=== PATIENT | female | born 1965 | race Hispanic/Latino ===

== ENCOUNTER 2016-07-22 17:20 | Emergency (ER) | payer OTHER ==
[~2016-07-22] VITALS: Ht 160 cm; Wt 92.5 kg
[~2016-07-22 17:20] MED LIST: ALBUTEROL0.09 MG/A1 INH; AMBIEN10 MG PO; ESCITALOPRAM10 MG PO; ESCITALOPRAM20 MG PO; FENOFIBRATE145 MG PO; FLEXERIL10 MG PO; FLONASE120 SPRAY/ NAS; GABAPENTIN TAB600 MG PO; HYCET 325 MG/1473 ML PO; IBUPROFEN800 M1 PO; INVEGA 3 MG3 MG PO; LEVSIN/SL0.125 MG SL; LOVENOX 4040 MG/0.4 SC; LYRICA100 MG PO; MELOXICAM7.5 MG PO; MIRALAX17 GM PO; MORPHINE SULFAT15 MG PO; MORPHINE SULFAT30 M2 PO; MULTIVITAMIN1 TAB PO; PERCOCET 5-3251 EACH PO; PRISTIQ100 MG PO; PROTONIX 40MG T40 MG PO; RISPERIDONE2 MG PO; ROBAXIN-750750 MG PO; ROBITUSSIN W/CO10 ML PO; TRAZODONE HCL150 MG PO; ZITHROMAX Z-PA250 M1 PO; ZOFRAN4 M1 SL
[2016-07-22] MEDS ORDERED: ESCITALOPRAM OX10 MG PO (19:04)
--- NOTE | 2016-07-22 19:40 | ED GI/GU/ABDOMINAL COMPLAINT ---
History of Present Illness General Chief Complaint: Abdominal Pain/Flank Pain Stated Complaint: ABDOMINAL PAIN/SWELLING OFF AND ON X 3 WEEKS Source: patient Exam Limitations: no limitations Vital Signs & Intake/Output Vital Signs & Intake/Output Vital Signs Date Time Temp Pulse Resp B/P B/P Pulse O2 O2 Flow FiO2 Mean Ox Delivery Rate 07/22 2020 97.8 64 18 122/77 98 07/22 1731 98.1 75 16 121/84 95 Room Air Allergies Coded Allergies: NO KNOWN ALLERGIES (04/30/14) Reconcile Medications Escitalopram Oxalate 10 MG TABLET 1 TAB PO PRN MENTAL HEALTH (Reported) Triage Note: PT HAS BEEN HAVING BELLY SWELLING SINCE THE 'ST OF LAST MONTH. PT HAD A BIOPSY OF HER LIVER AND HAS NOT GOTTEN RESULTS BACK YET. PT IS HAVING A LOT OF PAIN AND SHE IS HAVING PRESSURE. Triage Nurses Notes Reviewed? yes ? n Is pt currently ? No HPI: Patient presents for evaluation of Right upper quadrant abdominal pain that began about 3 weeks ago. Patient states the abdominal pain has been constant and mild but becomes severe with standing. She states she had a liver biopsy done on July 16 as a result of her persistent abdominal pain. The results of the biopsy are still pending. He has had no pain medications prescribed and has not tried any [id number] pain medications either. Patient is unable to describe the characteristics of the pain but it is generally located in the right upper quadrant. There is no change with eating. No associated fever, vomiting, diarrhea or dysuria. Past History Travel History Traveled to [place] past 21 day No Medical History Any Pertinent Medical History? see below for history Neurological: REGIONAL PAIN SYNDROME RT ARM EENT: NONE Cardiovascular: NONE Respiratory: NONE Gastrointestinal: LYSIS OF ADHESIONS Hepatic: NONE Renal: NONE Musculoskeletal: NONE Psychiatric: NONE Endocrine: NONE Blood Disorders: NONE Cancer(s): NONE GROCERY STORE BAGGER/Reproductive: HYSTERECTOMY History of MRSA: No History of VRE: No History of CDIFF: No Surgical History Surgical History: N (noncontributory) Psychosocial History Who do you live with Spouse What is your primary language Lithuanian Tobacco Use: Never used ETOH Use: denies use Illicit Drug Use: denies illicit drug use Family History Hx Contributory? No Review of Systems Review of Systems Constitutional: Reports: no symptoms. EENTM: Reports: no symptoms. Respiratory: Reports: no symptoms. Cardiovascular: Reports: no symptoms. GI: Reports: see HPI. Genitourinary: Reports: no symptoms. Musculoskeletal: Reports: no symptoms. Skin: Reports: no symptoms. Neurological/Psychological: Reports: no symptoms. Hematologic/Endocrine: Reports: no symptoms. Immunologic/Allergic: Reports: no symptoms. All Other Systems: Reviewed and Negative Physical Exam Physical Exam Gastrointestinal: normal bowel sounds (S), SEE BELOW Comments: Gen.: Well-nourished, well-developed, no acute respiratory distress. Head: Normocephalic, atraumatic. Eyes: Normal inspection bilaterally Ears: Normal inspection bilaterally Nose: Normal inspection Throat/mouth : Moist mucosa Neck: Supple, full range of motion, no goiter Heart: Regular rate and rhythm, no murmurs rubs or gallops Lungs: Clear to auscultation bilaterally with normal air entry Chest: Nontender Back: Normal range of motion Abdomen: Soft, right upper quadrant abdominal tenderness with [place] regarding the no rebound, nondistended, normal bowel sounds, no hepatosplenomegaly. Extremities: Normal range of motion grossly, equal radial pulses, no cyanosis clubbing or edema Neurologic: Cranial nerves grossly intact, speech is clear Skin: warm and dry Psychiatric: Calm, cooperative, no apparent delusions or hallucinations Core Measures ACS in differential dx? No Severe Sepsis Present: No Septic Shock Present: No Progress Differential Diagnosis: BOWEL OBSTRUCTION, ASCITES, BILIARY COLIC, CONSTIPATION Plan of Care: Orders Procedure Date/time Status URINALYSIS 07/22 1944 Active LIPASE 07/22 1944 Complete HUMAN BETA HCG SCREEN 07/22 1944 Complete COMPREHENSIVE METABOLIC PANEL 07/22 1944 Complete CBC WITHOUT DIFFERENTIAL 07/22 1944 Complete Laboratory Tests 07/22/16 2013: Anion Gap 7, Estimated GFR > 60, BUN/Creatinine Ratio 28.6 H, Glucose 82, Calcium 9.5, Total Bilirubin 0.5, AST 22, ALT 32, Alkaline Phosphatase 87, Total Protein 7.4, Albumin 4.3, Globulin 3.1, Albumin/Globulin Ratio 1.4, Lipase 290, Total Beta HCG NEGATIVE, CBC w Diff NO MAN DIFF REQ, RBC 5.25, MCV 82.7, MCH 26.2 L, RDW 13.7, MPV 9.7, Gran % 55.0, Lymphocytes % 35.1, Monocytes % 7.5, Eosinophils % 2.0, Basophils % 0.4, Absolute Granulocytes 5.0, Absolute Lymphocytes 3.2, Absolute Monocytes 0.7 H, Absolute Eosinophils 0.2, Absolute Basophils 0, PUBS MCHC 31.7 L, Urine Color Pending, Urine Clarity Pending, Urine pH Pending, Ur Specific [place] Pending, Urine Protein Pending, Urine Ketones Pending, Urine Nitrite Pending, Urine Bilirubin Pending, Urine Urobilinogen Pending, Ur Leukocyte Esterase Pending, Ur Microscopic Pending, Urine Hemoglobin Pending, Urine Glucose Pending Diagnostic Imaging: Discussed w/RAD: CT Scan. Radiology Impression: PATIENT: DANNIE WATSON PRESENT AGE: 50 PATIENT ACCOUNT NO: [id number] : 67 LOCATION: [facility] ORDERING PHYSICIAN: ROBSON BROTHERS MD SERVICE DATE: 07/22/16 EXAM TYPE: CAT - CT ABD & PELVIS W/O IV CONTRAS EXAMINATION: CT ABDOMEN AND PELVIS WITHOUT CONTRAST CLINICAL INFORMATION: Right upper quadrant abdominal pain. COMPARISON: CT abdomen and pelvis 03/30/2015. TECHNIQUE: Multidetector volumetric imaging was performed from the superior aspect of the liver through the pubic symphysis. Sagittal and coronal reformatted images were obtained on the technologist's workstation. DLP: 926 mGy-cm FINDINGS: Limited evaluation of the solid abdominal viscera in the absence of intravenous contrast. LUNG BASES: The visualized lung bases are unremarkable. LIVER, GALLBLADDER, AND BILIARY TREE: The liver is normal in size, shape, and attenuation. No focal hepatic lesion or biliary ductal dilatation is present. The gallbladder is surgically absent. PANCREAS: Unremarkable. SPLEEN: Unremarkable. ADRENAL GLANDS: Unremarkable. KIDNEYS AND URETERS: The kidneys are normal in size, shape, and attenuation. No hydronephrosis, hydroureter, or calculi seen. No perinephric stranding. BLADDER: Unremarkable. GASTROINTESTINAL TRACT: Evaluation of the gastrointestinal system demonstrates postsurgical changes related to prior gastric surgery. There is normal anatomic orientation of the stomach relative to the duodenum. Abdominal and pelvic bowel loops are normal in caliber, without findings indicative of small bowel obstruction or ileus. There is a moderate amount of retained stool throughout the colon. No organizing intra-abdominal or pelvic fluid collections are identified and there is no free intraperitoneal air. The appendix is not clearly visualized on this exam. However, there are no acute inflammatory changes within the right lower quadrant of the abdomen to suggest acute appendicitis. ABDOMINAL WALL: No significant hernia is appreciated. LYMPH NODES: No significant abdominal or pelvic adenopathy. VASCULAR: Normal course and caliber of the abdominal aorta and its branching vessels, without aneurysmal dilatation. Limited evaluation for vascular patency in the absence of intravenous contrast. PELVIC VISCERA: Unremarkable. OSSEOUS STRUCTURES: No acute osseous abnormality. Normal alignment of the imaged thoracolumbar spine. No destructive osseous lesions. IMPRESSION: No acute findings within the abdomen or pelvis to explain patient symptomatology. The gallbladder is surgically absent. The appendix is not well seen on this examination. However, there are no acute inflammatory changes within the right lower quadrant of the abdomen. There are postsurgical changes related to prior gastric surgery. Abdominal and pelvic bowel loops are normal in caliber, without findings indicative of small bowel obstruction or ileus. There is a moderate amount of retained stool throughout the colon. DICTATED BY: ELVIN SANTAMARIA MD DATE/TIME DICTATED:07/22/162107 AGENT BASED MODELER:ROE DATE/TIME TRANSCRIBED:07/22/162107 CONFIDENTIAL, DO NOT COPY WITHOUT APPROPRIATE AUTHORIZATION. <Electronically signed in Other Vendor System> SIGNED BY: ELVIN SANTAMARIA MD 07/22/162124 Initial ED EKG: none Comments: 07/22/2016 9:41:32 PM I have updated DANNIE on her test results. The cause of her abdominal pain is unclear. Despite the CAT scan report, patient states that she is moving her bowels on a daily basis and doesn't feel constipated. I've asked that she follow up with her primary care physician given the unclear nature of her symptoms. Departure Departure Disposition: HOME OR SELF CARE Condition: Stable Clinical Impression Primary Impression: Nonspecific abdominal pain Referrals: ARISTEO RODRIGUEZ,TOI Caicedo (PCP/Family) Additional Instructions: Tramadol as needed for pain. Follow-up with your primary care doctor in 24-48 hours if not improving. Return if any concerns or sudden worsening. Please note that there might be incidental findings in your evaluation that are unrelated to the current emergency department visit. Please notify your primary care doctor about this emergency department visit in order to obtain and review all of the testing performed so that these incidental findings can be monitored as needed. If you had an x-ray performed, please understand that some fractures may not be seen on the initial set of x-rays. If your symptoms persist you might need a repeat set of x-rays to check for such a fracture. If you had a laceration evaluated, please understand that foreign bodies such as glass or wood may not be visible to the naked eye or on plain x-rays. If the wound becomes red, swollen, increasingly more painful or if there is any drainage from the wound, please have it reevaluated by a physician for the possibility of a retained foreign body. Thank you for choosing the [facility] for your care. It was a pleasure to serve you today. [employer]son [employer] M.D. [facility] Departure Forms: Customer Survey General Discharge Information Prescriptions: Current Visit Scripts Tramadol HCl (Ultram) 1-2 TAB PO Q6P PRN PAIN #12 TAB
[2016-07-22 20:21] VITALS: BP 122/77
[2016-07-22 20:29] LABS: ABSOLUTE BASOPHIL COUNT 0 /CUMM (0.0-0.2); ABSOLUTE EOSINOPHIL COUNT 0.2 /CUMM (0.0-0.7); ABSOLUTE LYMPH COUNT 3.2 /CUMM (1.2-3.4); ABSOLUTE MONOCYTE COUNT 0.7 /CUMM (0.10-0.60); BASOPHIL % 0.4 % (0.0-2.0); HEMATOCRIT 43.4 % (37-47); MEAN CORPUSCULAR HGB 26.2 PG (27.0-31.0); MEAN CORPUSCULAR HGB CONC 31.7 G/DL (33.0-37.0); MEAN CORPUSCULAR VOLUME 82.7 FL (81.0-99.0); MEAN PLATELET VOLUME 9.7 FL (7.4-10.4); PLATELET COUNT 251 /CUMM (130-400); RBC DISTRIBUTION WIDTH 13.7 % (11.5-14.5); RED BLOOD CELL CT 5.25 /CUMM (4.20-5.40)
--- NOTE | 2016-07-22 21:25 | CT SCAN REPORT ---
EXAMINATION: CT ABDOMEN AND PELVIS WITHOUT CONTRAST CLINICAL INFORMATION: Right upper quadrant abdominal pain. COMPARISON: CT abdomen and pelvis 03/30/2015. TECHNIQUE: Multidetector volumetric imaging was performed from the superior aspect of the liver through the pubic symphysis. Sagittal and coronal reformatted images were obtained on the technologist's workstation. DLP: 926 mGy-cm FINDINGS: Limited evaluation of the solid abdominal viscera in the absence of intravenous contrast. LUNG BASES: The visualized lung bases are unremarkable. LIVER, GALLBLADDER, AND BILIARY TREE: The liver is normal in size, shape, and attenuation. No focal hepatic lesion or biliary ductal dilatation is present. The gallbladder is surgically absent. PANCREAS: Unremarkable. SPLEEN: Unremarkable. ADRENAL GLANDS: Unremarkable. KIDNEYS AND URETERS: The kidneys are normal in size, shape, and attenuation. No hydronephrosis, hydroureter, or calculi seen. No perinephric stranding. BLADDER: Unremarkable. GASTROINTESTINAL TRACT: Evaluation of the gastrointestinal system demonstrates postsurgical changes related to prior gastric surgery. There is normal anatomic orientation of the stomach relative to the duodenum. Abdominal and pelvic bowel loops are normal in caliber, without findings indicative of small bowel obstruction or ileus. There is a moderate amount of retained stool throughout the colon. No organizing intra-abdominal or pelvic fluid collections are identified and there is no free intraperitoneal air. The appendix is not clearly visualized on this exam. However, there are no acute inflammatory changes within the right lower quadrant of the abdomen to suggest acute appendicitis. ABDOMINAL WALL: No significant hernia is appreciated. LYMPH NODES: No significant abdominal or pelvic adenopathy. VASCULAR: Normal course and caliber of the abdominal aorta and its branching vessels, without aneurysmal dilatation. Limited evaluation for vascular patency in the absence of intravenous contrast. PELVIC VISCERA: Unremarkable. OSSEOUS STRUCTURES: No acute osseous abnormality. Normal alignment of the imaged thoracolumbar spine. No destructive osseous lesions. IMPRESSION: No acute findings within the abdomen or pelvis to explain patient symptomatology. The gallbladder is surgically absent. The appendix is not well seen on this examination. However, there are no acute inflammatory changes within the right lower quadrant of the abdomen. There are postsurgical changes related to prior gastric surgery. Abdominal and pelvic bowel loops are normal in caliber, without findings indicative of small bowel obstruction or ileus. There is a moderate amount of retained stool throughout the colon.
[2016-07-22] MEDS ORDERED: ULTRAM50 M1 PO (21:44)
== END 2016-07-22 21:57 ==
LOC: ERH 17:20
PROVIDERS: Emergency Medicine
DX: R10.11 Right upper quadrant pain (principal)
CPT/HCPCS: 74176; 81001

== ENCOUNTER 2016-08-03 23:18 | Emergency (ER) | payer OTHER ==
[~2016-08-03 23:18] MED LIST changes: +ESCITALOPRAM OX10 MG PO; +ULTRAM50 M1 PO
[2016-08-04 00:27] LABS: ABSOLUTE BASOPHIL COUNT 0 /CUMM (0.0-0.2); ABSOLUTE EOSINOPHIL COUNT 0.1 /CUMM (0.0-0.7); ABSOLUTE GRANULOCYTE CT 4.3 /CUMM (1.4-6.5); ABSOLUTE MONOCYTE COUNT 0.6 /CUMM (0.10-0.60); BASOPHIL % 0.5 % (0.0-2.0); EOSINOPHIL % 1.8 % (0-5); GRANULOCYTE % 53.5 % (42.2-75.2); HEMATOCRIT 43.5 % (37-47); MEAN CORPUSCULAR HGB 26.5 PG (27.0-31.0); MEAN CORPUSCULAR HGB CONC 31.9 G/DL (33.0-37.0); MEAN PLATELET VOLUME 10.2 FL (7.4-10.4); PLATELET COUNT 230 /CUMM (130-400); RBC DISTRIBUTION WIDTH 13.8 % (11.5-14.5); RED BLOOD CELL CT 5.24 /CUMM (4.20-5.40); WHITE BLOOD CELL COUNT 8.1 /CUMM (4.8-10.8)
--- NOTE | 2016-08-04 01:49 | ED GI/GU/ABDOMINAL COMPLAINT ---
History of Present Illness General Chief Complaint: Abdominal Pain/Flank Pain Stated Complaint: ABD PAIN FOR 1 MONTH Source: patient, family, old records Exam Limitations: no limitations Vital Signs & Intake/Output Vital Signs & Intake/Output Vital Signs Date Time Temp Pulse Resp B/P B/P Pulse O2 O2 Flow FiO2 Mean Ox Delivery Rate 08/04 0249 96.7 68 20 113/63 97 Room Air 08/04 0138 98 Room Air 08/03 2358 97.9 82 16 115/80 98 Room Air ED Intake and Output 08/04 0000 08/03 1200 Intake Total Output Total Balance Patient 204 lb Weight Weight Reported by Patient Measurement Method Allergies Coded Allergies: NO KNOWN ALLERGIES (04/30/14) Reconcile Medications Escitalopram Oxalate 10 MG TABLET 1 TAB PO PRN MENTAL HEALTH (Reported) Tramadol HCl (Ultram) 50 MG TABLET 1-2 TAB PO Q6P PRN PAIN Tramadol HCl 50 MG TABLET 1 TAB PO Q6P PRN PAIN Triage Note: TRIAGE: LLQ PAIN AND SWELLING X 1 MONTH, SEEN RECENTLY FOR SAME. PAIN DOES NOT RADIATE AND IS CONSTANCT IN NATURE. LAST BM YESTERDAY AND DIARRHEA X4 EPISODES. +N/-V. AFEBRILE IN TRIAGE. HAD RECENT LIVER BIOPSY WHICH SHE STATES CAME BACK OK. ENDORSES LETHARGY AND FATIGUE Triage Nurses Notes Reviewed? yes ? N Is pt currently ? No HPI: Patient presents with abdominal pain and distention over the past 1 month. Patient was seen here on July 22 for the same complaint. Patient at that time had lab work and a CAT scan. Patient was discharged home on tramadol. Since that time she has seen her high school mathematics teacher and he wants to do an endoscopy and colonoscopy. Patient continued to have the pain but ran out of the tramadol so comes back to the emergency department. Occasional nausea but no vomiting. No diarrhea. Patient states that she has been having normal bowel movements. There are no fevers or chills. Patient rates the pain as 10 out of 10. There are no aggravating factors. Patient states tramadol only slightly relieves the pain. The pain is diffuse but there is no radiation outside of the abdominal area. Past History Travel History Traveled to [place] past 21 day No Medical History Any Pertinent Medical History? see below for history Neurological: REGIONAL PAIN SYNDROME RT ARM EENT: NONE Cardiovascular: NONE Respiratory: NONE Gastrointestinal: LYSIS OF ADHESIONS Hepatic: NONE Renal: NONE Musculoskeletal: NONE Psychiatric: NONE Endocrine: NONE Blood Disorders: NONE Cancer(s): NONE RETIREMENT CONSULTANT/Reproductive: HYSTERECTOMY History of MRSA: No History of VRE: No History of CDIFF: No Surgical History Surgical History: GASTRIC SLEEVE Psychosocial History Who do you live with Spouse What is your primary language Yoruba Tobacco Use: Never used ETOH Use: denies use Illicit Drug Use: denies illicit drug use Family History Hx Contributory? No Review of Systems Review of Systems Constitutional: Reports: no symptoms. EENTM: Reports: no symptoms. Respiratory: Reports: no symptoms. Cardiovascular: Reports: no symptoms. GI: Reports: see HPI, abdominal pain, nausea. Genitourinary: Reports: no symptoms. Musculoskeletal: Reports: no symptoms. Skin: Reports: no symptoms. Neurological/Psychological: Reports: no symptoms. Hematologic/Endocrine: Reports: no symptoms. Immunologic/Allergic: Reports: no symptoms. All Other Systems: Reviewed and Negative Physical Exam Physical Exam General Appearance: well developed/nourished, alert, awake, mild distress Head: atraumatic, normal appearance Eyes: Bilateral: PERRL, EOMI. Ears, Nose, Throat, Mouth: hearing grossly normal, moist mucous membrane Neck: normal inspection, supple, full range of motion Respiratory: normal breath sounds, chest non-tender, no respiratory distress, lungs clear Cardiovascular: regular rate/rhythm, normal peripheral pulses Gastrointestinal: normal bowel sounds, soft, non-tender, no organomegaly, NO REBOUND OR GUARDING Back: normal inspection, normal range of motion Extremities: normal range of motion Neurologic/Psych: no motor/sensory deficits, awake, alert, oriented x 3, normal gait, normal mood/affect Skin: intact, normal color, warm/dry Core Measures ACS in differential dx? No Severe Sepsis Present: No Septic Shock Present: No Progress Differential Diagnosis: bowel obstruction, gastritis, hepatitis, ischemic bowel, inflamm bowel dis, peptic ulcer, PUD/GERD, SBO Plan of Care: Orders Procedure Date/time Status LACTIC ACID 08/03 2357 Complete COMPREHENSIVE METABOLIC PANEL 08/03 2357 Complete CBC WITHOUT DIFFERENTIAL 08/03 2357 Complete Laboratory Tests 08/04/16 0258: Lactic Acid Cancelled 08/03/16 235: Anion Gap 11, Estimated GFR > 60, BUN/Creatinine Ratio 27.5 H, Glucose 87, Lactic Acid 0.6 L, Calcium 9.7, Total Bilirubin 0.4, AST 22, ALT 31, Alkaline Phosphatase 90, Total Protein 7.8, Albumin 4.7, Globulin 3.1, Albumin/Globulin Ratio 1.5, CBC w Diff NO MAN DIFF REQ, RBC 5.24, MCV 83.0, MCH 26.5 L, RDW 13.8 , MPV 10.2, Gran % 53.5, Lymphocytes % 36.5, Monocytes % 7.7, Eosinophils % 1.8, Basophils % 0.5, Absolute Granulocytes 4.3, Absolute Lymphocytes 3.0, Absolute Monocytes 0.6, Absolute Eosinophils 0.1, Absolute Basophils 0, PUBS MCHC 31.9 L Diagnostic Imaging: Viewed by Me: Radiology Read. Discussed w/RAD: Radiology Read. Radiology Impression: PATIENT: DANNIE WATSON PRESENT AGE: 50 PATIENT ACCOUNT NO: [id number] : 69 LOCATION: [facility] ORDERING PHYSICIAN: CHRISTOPHE ALEMAN MD SERVICE DATE: 08/04/16 EXAM TYPE: RAD - XRY-ABD MULTI VIEW W/PA CHEST EXAMINATION: XR ABDOMEN WITH PA CHEST CLINICAL INDICATION: Abdominal pain. Question obstruction. COMPARISON: CT scan of abdomen and pelvis 07/22/2016. TECHNIQUE: AP supine and upright views of the abdomen and pelvis were obtained. An upright PA chest radiograph was also performed. FINDINGS: Chest: Lungs are clear and well-expanded and there is no focal consolidative disease, pleural effusion, or pneumothorax. The cardiac silhouette and upper mediastinal contours are normal. No acute osseous finding. Abdomen: Intraluminal gas and stool is visualized within the colon. There are no abnormally dilated loops of small bowel. No free intraperitoneal air. Solid organ contours are normal. Surgical clips are visualized within the right upper quadrant indicating chronic changes of a cholecystectomy. No acute osseous finding. IMPRESSION: Unremarkable radiographs of the chest and abdomen. DICTATED BY: JUANJOSE RAMIRES MD DATE/TIME DICTATED:08/04/16337 ROPEWALK ROPE MAKER: ROE DATE/TIME TRANSCRIBED:08/04/16337 CONFIDENTIAL, DO NOT COPY WITHOUT APPROPRIATE AUTHORIZATION. <Electronically signed in Other Vendor System> SIGNED BY: JUANJOSE RAMIRES MD 08/04/16 0343 Initial ED EKG: none Comments: Lab work and CAT scan reviewed from prior visit. Departure Departure Disposition: HOME OR SELF CARE Condition: Stable Clinical Impression Primary Impression: Unspecified abdominal pain Qualifiers: Abdominal location: generalized Qualified Code: R10.84 - Generalized abdominal pain Referrals: ARISTEO RODRIGUEZ,TOI Caicedo (PCP/Family) Additional Instructions: Follow-up with her high school mathematics teacher. Return for any concerns. Departure Forms: Customer Survey General Discharge Information Prescriptions: Current Visit Scripts Tramadol HCl 1 TAB PO Q6P PRN PAIN #12 TAB
[2016-08-04] MEDS ORDERED: TRAMADOL HCL50 M1 PO (02:27)
[2016-08-04 02:49] VITALS: BP 113/63
--- NOTE | 2016-08-04 03:44 | RADIOLOGY REPORT ---
EXAMINATION: XR ABDOMEN WITH PA CHEST CLINICAL INDICATION: Abdominal pain. Question obstruction. COMPARISON: CT scan of abdomen and pelvis 07/22/2016. TECHNIQUE: AP supine and upright views of the abdomen and pelvis were obtained. An upright PA chest radiograph was also performed. FINDINGS: Chest: Lungs are clear and well-expanded and there is no focal consolidative disease, pleural effusion, or pneumothorax. The cardiac silhouette and upper mediastinal contours are normal. No acute osseous finding. Abdomen: Intraluminal gas and stool is visualized within the colon. There are no abnormally dilated loops of small bowel. No free intraperitoneal air. Solid organ contours are normal. Surgical clips are visualized within the right upper quadrant indicating chronic changes of a cholecystectomy. No acute osseous finding. IMPRESSION: Unremarkable radiographs of the chest and abdomen.
== END 2016-08-04 03:56 ==
LOC: ERH 23:18
PROVIDERS: Emergency Medicine
DX: R10.32 Left lower quadrant pain (principal)
CPT/HCPCS: 74022